=== PATIENT | male | born 1990 | race African-American/Black ===

== ENCOUNTER 2017-04-18 12:08 | Emergency (ER) | payer MEDICAID, OTHER ==
[2017-04-18 12:19] VITALS: RESP 16; TEMP 97.7
[2017-04-18] MEDS ORDERED: NS 1,000 ML IV ONE (12:35)
[2017-04-18 12:53] LABS: % IMMATURE GRANULYOCYTES 0.3 % (0.0-1.1); ABSOLUTE IMMATURE GRANULOCYTES 0.02 10^3/uL (0.00-0.10); ADD DIFF? NO; ADD MORPH? NO; ADD SCAN? NO; ATYPICAL LYMPHOCYTE FLAG 40 (0-99); FRAGMENT RBC FLAG 0 (0-99); HEMOGLOBIN 17.3 g/dL (13.7-17.5); LEFT SHIFT FLG 0 (0-99); LIPEMIA HEMOLYSIS FLAG 90 (0-99); MEAN CELL HEMOGLOBIN 31.7 pg (27.9-34.1); MEAN CELL HEMOGLOBIN CONCENTR. 34.6 g/dL (32.4-36.7); MEAN CELL VOLUME 91.7 fL (81.5-99.8); PLATELET CLUMPS FLAG 0 (0-99); PLATELET COUNT 201 10^3/uL (150-400); RED BLOOD CELL COUNT 5.45 10^6/uL (4.40-6.38); RED CELL DISTRIBUTION WIDTH 11.5 % (11.5-15.2)
[2017-04-18 13:03] LABS: ALANINE AMINOTRANSFERASE 28 IU/L (21-72); ALBUMIN 4.3 g/dL (3.5-5.0); ALKALINE PHOSPHATASE 59 IU/L (38-126); ANION GAP 13 mEq/L (8-16); ASPARTATE AMINOTRANSFERASE 24 IU/L (17-59); BILIRUBIN,TOTAL 0.7 mg/dL (0.1-1.4); CALCIUM 9.8 mg/dL (8.5-10.4); CARBON DIOXIDE 26 mEq/l (22-31); CHLORIDE 104 mEq/L (97-110); CREATININE 1.3 mg/dL (0.7-1.3); GLOMERULAR FILTRATION RATE > 60; GLUCOSE 85 mg/dL (70-100); POTASSIUM 4.7 mEq/L (3.5-5.2); SODIUM 143 mEq/L (134-144); TOTAL PROTEIN 7.8 g/dL (6.3-8.2)
[2017-04-18] MEDS ORDERED: HYOSCYAMINE SULFATE 0.125 MG TAB PO ONE ×2 (13:08→14:09)
[2017-04-18 13:23] LABS: COLOR YELLOW; LEUKOCYTE ESTERASE,URINE NEGATIVE (NEGATIVE); NITRITE,URINE NEGATIVE (NEGATIVE)
--- NOTE | 2017-04-18 13:36 | EDPHY ---
H & P Stated Complaint: LLQ PAIN AND CONSTIPATION X 4 DAYS Time Seen by Provider: 04/18/17 12:18 HPI/ROS: This patient complains of a 4 day history of intermittent abdominal pain described as crampy in nature. He describes locations primarily left mid belly and states that it "feels like that is a tight spot that is hard for stool to get past." The pain worsens after he eats. He notes no other exacerbating factors. Peak intensity has been moderate. Currently it is 2/10 discomfort. He skipped breakfast this morning concerned that he might make the symptoms worse. He is hungry at this time. He notes no other associated symptoms except for a subjective fever yesterday. He admits firm stools recently but had a soft stool today. No change in the caliber or color of his stools. He notes no other exacerbating or alleviating factors. ROS: Constitutional: No high fevers chills or fatigue. HEENT: No URI symptoms Pulmonary: No cough shortness of breath Cardiovascular: No chest pain or heart palpitations. No lightheadedness. GI: No upper belly pain. No dark tarry stools. No nausea or vomiting. : No testicular swelling. No testicular pain. No dysuria. No frequency. No urgency. No urethral discharge. No hematuria. Musculoskeletal: No back pain. 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 Integumentary: No skin rash Neuro: No complaints 10 point ROS is otherwise negative. Source: Patient Exam Limitations: No limitations - Medical/Surgical History Hx Asthma: No Hx Chronic Respiratory Disease: No Hx Diabetes: No Hx Cardiac Disease: No Hx Renal Disease: No Hx Cirrhosis: No Hx Alcoholism: No Hx HIV/AIDS: No Hx Splenectomy or Spleen Trauma: No Other PMH: med hx-none. surg-none - Family History Significant Family History: No pertinent family hx - Social History Smoking Status: Never smoked Alcohol Use: Occasionally Drug Use: Marijuana - Physical Exam Exam: Vital signs are normal General Appearance: Pleasant young black male Alert, no distress. Eyes: Pupils equal and round no pallor or injection. ENT, Mouth: Mucous membranes moist. Respiratory: There are no retractions, lungs are clear to auscultation. Cardiovascular: Regular rate and rhythm. Gastrointestinal: Slightly hyperactive bowel sounds, soft, minimal left mid belly tenderness adjacent to the umbilicus with no guarding or rebound. : No testicular tenderness Back: No CVA tenderness Neurological: GCS 15 Skin: Warm and dry, no rashes. Musculoskeletal: Neck is supple nontender. Extremities are symmetrical, full range of motion. Psychiatric: Mood and affect normal DIFFERENTIAL DIAGNOSIS: After history and physical exam differential diagnosis was considered for constipation, food intolerance, viral illness, doubt diverticulitis, UTI Constitutional: Initial Vital Signs Temperature (C) 36.5 C 04/18/17 12:18 Heart Rate 58 L 04/18/17 12:18 Respiratory Rate 16 04/18/17 12:18 Blood Pressure 124/58 H 04/18/17 12:18 O2 Sat (%) 98 04/18/17 12:18 O2 Delivery Mode Room Air Allergies/Adverse Reactions: No Known Allergies Allergy (Verified 04/18/17 12:18) Home Medications: Medication Instructions Recorded HYOSCYAMINE SULFATE [LEVSIN-SL] 0.125 - 0.25 mg SL Q6 PRN #20 04/18/17 [email or web address] Medical Decision Making ED Course/Re-evaluation: IV Levsin sublingual without much change in his symptoms, Toradol IV with some improvement Review of his labs reveals normal CBC and comp metabolic panel. He has 5 red cells in his urine but I think this is consistent with minor trauma from his tumbling. I do not think the patient has a ureteral stone. Given his hyperactive bowels in the waxing waning cramping nature of the symptoms, I suspect this is related to increased bowel motility likely from food intolerance such as lactose intolerance or wheat intolerance/gluten intolerance. Counseled regarding this. He has a benign belly exam appears clinically well. He does not have a surgical abdomen. We ruled out UTI. No other concerning findings - Data Points Laboratory Results: Laboratory Results 04/18/17 12:44 04/18/17 12:44 Medications Given: Discontinued Medications Hyoscyamine Sulfate (Levsin, Hyomax-Sl) 0.125 mg PO EDNOW ONE Stop: 04/18/17 13:09 Last Admin: 04/18/17 13:12 Dose: 0.125 mg Hyoscyamine Sulfate (Levsin, Hyomax-Sl) 0.125 mg PO EDNOW ONE Stop: 04/18/17 14:10 Last Admin: 04/18/17 14:49 Dose: 0.125 mg Sodium Chloride (Ns) 1,000 mls @ 0 mls/hr IV EDNOW ONE; Wide Open PRN Reason: Protocol Stop: 04/18/17 12:36 Last Admin: 04/18/17 12:42 Dose: 1,000 mls Ketorolac Tromethamine (Toradol) 30 mg IVP EDNOW ONE Stop: 04/18/17 14:11 Last Admin: 04/18/17 14:50 Dose: 30 mg Departure - Departure Disposition: Home, Routine, Self-Care Clinical Impression: Abdominal cramping in left lower quadrant Condition: Good Instructions: Acute Abdominal Pain (ED) Additional Instructions: Diagnosis: Abdominal cramping-left lower belly Your labs today are normal You may have a food allergy. Consider holding off on dairy products. If that has no effect, consider holding off on weak based products. Plan: Levsin if needed for cramping Drink plenty fluids Follow up with primary care physician for any ongoing symptoms Return for any significant worsening despite the treatment plan. Referrals: NONE *PRIMARY CARE P,. [Primary Care Provider] - As per Instructions Prescriptions: HYOSCYAMINE SULFATE [LEVSIN-SL] 0.125 - 0.25 mg SL Q6 PRN #20 [email or web address] PRN Reason: Abdominal cramping
[2017-04-18 13:43] LABS: BACTERIA TRACE /hpf (NONE SEEN); MUCUS 3+ /lpf (NONE-1+); YEAST OCCASIONAL /hpf (NONE SEEN)
[2017-04-18] MEDS ORDERED: KETOROLAC 30 MG/1 ML SDV IVP ONE (14:10)
[2017-04-18 15:16] VITALS: BP 118/68; PULSE 54; O2SAT 98
== END 2017-04-18 15:08 | disposition home or self-care (01) ==
LOC: CED 12:08
DX: R10.32 Left lower quadrant pain (principal); E86.9 Volume depletion, unspecified
CPT/HCPCS: 80053-PO; 81003-PO; 81015-PO; 85025-PO; 96374; J1885

== ENCOUNTER → 2017-04-21 | Outpatient (CLI) | payer OTHER ==
[~2017-04-21] MED LIST: IOPAMIDOL (ISOVUE 370) 100 ML BTL IV ONE
== END ==
LOC: CIMAGING 11:31
PROVIDERS: ATTEND Internal Medicine Gastroenterology
DX: R10.32 Left lower quadrant pain (principal); Q63.8 Other specified congenital malformations of kidney; M43.17 Spondylolisthesis, lumbosacral region
CPT/HCPCS: 74177-PO; Q9967